=== PATIENT | female | born 1945 | race Caucasian/White ===

== ENCOUNTER 2017-01-26 18:14 | Inpatient (IN) | payer MEDICARE ==
[~2017-01-26] VITALS: Ht 167.6 cm; Wt 77.1 kg
[~2017-01-26 18:14] MED LIST: FERR325C PO; GLPZ5T PO; INSU100I18 SUBQ; MESA500C PO; VANC1VIA13 PO
[2017-01-26 18:18] VITALS: BP 116/67; PULSE 105; RESP 14; O2SAT 97
--- NOTE | 2017-01-26 19:07 | ED.REPORT ---
HPI-General Illness Date of Service Jan 26, 2017 ED Provider: Doc,Ed MD The patient is a 71 year old female with a hx of DM who presents to the ED complaining increasing generalized weakness for the past month.Associated symptoms include fatigue and difficulty walking secondary to weakness. The patient also complains of chest pain with deep inhalation. She reports having a cough for two weeks previously but it has since resolved. Patient denies fever, chills, dysuria, abdominal pain or shortness of breath. She was seen on 01/21/17 where she was started on a 10 day treatment of Augmentin. She says that she stopped taking the Augmentin before finishing the prescription because her symptoms were not improving after a few days. Nursing Notes Stated Complaint: WEAKNESS Chief Complaint: General Complaint Nursing Notes Reviewed: Yes Allergies: Coded Allergies: aspirin (Verified Adverse Reaction, Intermediate, stomach problems, ) Scheduled Ferrous Sulfate (Iron) 325 Mg Capsule.er 325 MG PO DAILY Glipizide (Glipizide) 5 Mg Tablet 5 MG PO BID Insulin Lispro (HumaLOG U100 Insulin Pen) 100 Unit/1 Ml Insuln.pen 2-3 UNIT SUBQ BID Blood Sugar Lispro Correction <151 0 units 151-175 1 unit 176-200 2 units 201-225 3 units 226-250 4 units 251-275 5 units 276-300 6 units 301-325 7 units 326-350 8 units 351-375 9 units 376-400 10 units >400 12 units Check blood sugars before meals and at bedtime. Use correction factor only before meals. Vancomycin (Vancomycin) 100 Mg/Ml Solution 125 MG PO DAILY Scheduled PRN Mesalamine (Pentasa) 500 Mg Capsule 1,000 MG PO QID PRN PRN For Diarrhea or Loose Stool General Time Seen by MD: 19:06 Chief Complaint Weakness Hx Obtained From: Patient Onset Occurred: More than a week ago... (1 month) Symptom Duration: Since onset Recent Healthcare: No recent hospitalization, Recent doctor visit Similar Sx Previous: Yes Past Medical History Past Medical History Anemia History of ulcerative proctitis Also of colitis Hyperlipidemia Acute diabetes Irritable bowel syndrome Past Surgical History Hysterectomy Smoking History Never Smoker Social History Alcohol Use: Denies alcohol use Drug Use: Denies drug use Other Social History: Good social support Ambulatory Status Independent Review of Systems Full Review of Systems Constitutional: Reports: Fatigue, Denies: Chills, Fever Respiratory: Denies: Shortness of breath Cardiovascular: Reports: Chest pain (with deep inhalation) GI: Denies: Abdominal pain Female: Denies: Dysuria Neurologic: Reports: Problem walking, Weakness (generalized) Physical Exam Vital Signs Vital Signs Date Time Temp Pulse Resp B/P Pulse Ox O2 Delivery O2 Flow Rate FiO2 01/26/17 18:18 36.8 105 14 116/67 97 Room Air Initial VS: Reviewed General/Constitutional: Well-developed, Well-nourished Neck: Full range of motion Abdomen / GI: Soft, Non-tender Skin: Warm, Dry, No cyanosis Neurologic: Alert, Oriented Psychiatric: Mood/affect normal Head / Eyes: Atraumatic, Normocephalic, PERRL, EOMI ENT: Atraumatic, Airway patent, Mucous membranes moist Respiratory / Chest: Atraumatic, Breath sounds NL, Breath sounds = bilat, No respiratory distress Heart Sounds / Murmur: Positive: Murmur present... (III/) Lymphatic: No cervical adenopathy Lower Extremity / Pelvis / MS: Atraumatic, No edema Interpretation & Diagnostics Lab Results Interpretation Result Diagram: 01/26/17194101/26/171941 Test 01/26/17 19:42 01/26/17 21:45 White Blood Count 10.5th/mm3 (3.8-10.1) Red Blood Count 4.12mil/mm3 (3.90-5.20) Hemoglobin 11.4g/dL (12.0-15.6) Hematocrit 34.0% (35.0-46.0) Mean Corpuscular Volume 82.5fL (81-100) Mean Corpuscular Hemoglobin 27.7pg (27.0-35.0) Mean Corpuscular Hemoglobin Concent 33.5% (32.0-37.0) Red Cell Distribution Width 14.2% (12.3-15.4) Platelet Count 391bil/L (150-400) Neutrophils (%) (Auto) 71.6% (40-74) Lymphocytes (%) (Auto) 14.7% (14-46) Monocytes (%) (Auto) 10.0% (4-12) Eosinophils (%) (Auto) 2.9% (0-5) Basophils (%) (Auto) 0.3% (0-3) Prothrombin Time 10.0sec (8.1-12.5) Prothromb Time International Ratio 0.94ratio Sodium Level 128mEq/L (134-144) Potassium Level 3.9mEq/L (3.5-5.2) Chloride Level 91mEq/L (97-108) Carbon Dioxide Level 21mmol/L (18-29) Blood Urea Nitrogen 17mg/dL (8-27) Creatinine 0.96mg/dL (0.57-1.00) Estimat Glomerular Filtration Rate 83mL/min (>59) Glucose Level 365mg/dL (60-99) Lactic Acid Level 1.3mmol/L (0.4-2.0) Calcium Level 9.9mg/dL (8.5-10.1) Magnesium Level 2.1mg/dL (1.6-2.6) Total Bilirubin 0.3mg/dL (0.0-1.2) Aspartate Amino Transf (AST/SGOT) 6U/L (0-50) Alanine Aminotransferase (ALT/SGPT) 8U/L (0-32) Alkaline Phosphatase 103U/L (25-165) Troponin T < 0.010ug/L (0.0-0.011) Total Protein 9.2g/dL (6.4-8.4) Albumin 3.6g/dL (3.4-5.0) Procalcitonin 0.14ng/mL (0.00-0.08) Hold [place] Top Tube Received (Received) Hold [place] Top Tube Received (Received) X-Ray Chest Interpretation Chest Xray Interpretation: IMPRESSION: Right hemidiaphragm eventration with bibasilar atelectasis. Cannot rule out superimposed right basilar pneumonia. Recommend clinical correlation. Dictated by: Jese Tineo M.D. on 01/26/2017 at 20:21 Approved by: Jese Tineo M.D. on 01/26/2017 at 20:24 Interpretation / Wet Read by: Interpret - Radiologist Re-Eval/Medical Decision Time of Eval: 22:44 Re-Evaluation/Progress Note: Patient rechecked. Discussed plan to admit. Patient understands and agrees with plan. All questions addressed at this time. Consultation : Referral / Consult Name: Marian Coe DO Consulted With: Hospitalist Call Returned at: 22:38 Supervisor Specialty Plant: Will see patient, Agrees with eval, Agrees with plan, Accepts admit Note: Discussed patient's case. Accepts admit. Counseled Regarding: Diagnosis, Lab results, Need for admission Discharge & Departure Primary Impression: Pneumonia Pneumonia type: due to unspecified organism Laterality: unspecified laterality Lung location: unspecified part of lung Qualified Code: J18.9 - Pneumonia, unspecified organism Additional Impressions: Weakness Hyponatremia Hyperglycemia Tachycardia Disposition: ADMITTED TO HOSPITAL Discharge Condition All VS Reviewed: Yes Condition: Stable Referrals: Severo Webster MD (PCP) Scribe Attestation Portions of this note were transcribed by Sandie Ambrocio and Jean Maier. I, Dr. Hsieh personally performed the history, physical exam and medical decision -making; I reviewed and confirmed the accuracy of the information in the transcribed note. Signed by: Terri Zamora, 01/26/2017 copies to: Severo Webster MD, Gary R DO Jan 26, 2017 19:07 Jan 26, 2017 19:28 Juliette Ambrocio Jan 26, 2017 20:53
[2017-01-26 19:47] LABS: BASOPHILS % (AUTO) 0.3 % (0-3); EOSINOPHILS % (AUTO) 2.9 % (0-5); Mean Corpuscular Hemoglobin 27.7 pg (27.0-35.0); Mean Corpuscular Volume 82.5 fL (81-100); NEUTROPHILS % (AUTO) 71.6 % (40-74); Platelet Count 391 bil/L (150-400)
[2017-01-26 20:05] LABS: INR 0.94 ratio
[2017-01-26] MEDS ORDERED: Insulin LISPRO 300 Unit/3 mL Inj SUBQ ONE (20:25)
--- NOTE | 2017-01-26 20:26 | DRSVH ---
PROCEDURE: X-RAY CHEST, TWO VIEWS ([id number]) INDICATIONS: pain when breathing in feels sob TECHNIQUE: 2 views of the chest were acquired. COMPARISON: [facility], CR, CHEST 1VW (PORTABLE), 10/24/2014, 6:34. [facility], CR, XR CHEST 1VW (PORTABLE), 04/15/2015, 22:15. [facility], CR, XR CHEST 2VW, 2014, 8:14. FINDINGS: Surgical changes and devices: None. Lungs and pleura: There is right diaphragmatic eventration. Bibasilar atelectasis. No pleural effusi ons or pneumothorax. A density in the right upper lobe medially is probably caused by the first right costochondral calcification. Mediastinum: Mediastinal contours are normal. Heart size is normal. Bones and chest wall: No suspicious bony abnormalities. Soft tissues appear unremarkable. IMPRESSION: Right hemidiaphragm eventration with bibasilar atelectasis. Cannot rule out superimposed right basilar pneumonia. Recommend clinical correlation. Dictated by: Jese Tineo M.D. on 01/26/2017 at 20:21 Approved by: Jese Tineo M.D. on 01/26/2017 at 20:24
[2017-01-26 20:28] LABS: Magnesium 2.1 mg/dL (1.6-2.6)
[2017-01-26 20:29] LABS: TROPONIN T < 0.010 ug/L (0.0-0.011)
[2017-01-26] MEDS ORDERED: 0.9% Sodium Chloride 1,000 ML IV ONE (21:07)
[2017-01-26] MEDS ORDERED: cefTRIAXone Inj 1,000 MG in Dextrose 5% Minibag Plus 50 ML IV ONE (21:10)
[2017-01-26 22:43] VITALS: BP 122/78; PULSE 99; RESP 18; O2SAT 97
--- NOTE | 2017-01-26 23:25 | PCM.HPMED ---
Subjective Date of Service Jan 26, 2017 Primary Provider: Admitting Physician: Marian Coe DO Primary Care Physician: Severo Webster MD Attending Physician: Marian Coe DO Chief Complaint: Weakness and shortness of breath History of Present Illness: Janee Maurice is a 71-year-old female with past medical history significant for diabetes mellitus type II, osteoporosis, and iron deficiency anemia who is directed to the ED by urgent care for progressive weakness, fatigue, loss of appetite, and shortness of breath over the last month. Past states that initial it felt like a common cold with a scratchy throat and runny nose and friends had similar symptoms. Symptoms slowly progressed and she present to the urgent care on 01/21/2017 and was diagnosed with acute sinusitis and given Augmentin. Patient took for 4 but felt this was not improving her symptoms and discontinued. Her symptoms continued to progressively worsen and she is weak and having difficulty walking and doing her own ADLs. Weakness is associated with myalgias, labored breathing, nasal congestion, headache, and decreased oral intake. She denies nausea, vomiting, dysuria, or diarrhea. On presentation to the ED patient's vitals were temperature 36.8, pulse 105, respiratory 14 satting 97% on room air, and blood pressure 116/67. Initial labs revealed a white blood cell count 10.5 with normal differential, sodium of 128, glucose of 365, and a procalcitonin 0.14. Chest x-ray showed a possible right basilar pneumonia. Patient was started on ceftriaxone and azithromycin in the ED and given 1 L normal saline. Review of Systems: Comprehensive review of systems was conducted with the patient and found to be negative except as noted above in HPI. Allergies Coded Allergies: aspirin (Verified Adverse Reaction, Intermediate, stomach problems, ) Home Medications Amitriptyline 5 mg daily Ferrous gluconate 225 mg daily Glipizide 5 mg daily Humalog Risedronate 150 mg monthly PMH Ulcerative colitis - not under treatment - not diagnosed with colonoscopy per patient Diabetes mellitus type II Iron deficiency anemia Osteoporosis Family History Mother - heart disease and diabetes mellitus type II Father - - work accident Sister - parkinson, heart disease Social History Hx Alcohol Use: Yes (Very little) Hx Substance Use: No Hx Tobacco Use: No Smoking Status: Never Smoker Living Arrangement: with Friends/Roommate Exam Vital Signs Vital Sign - Last Date Time Temp Pulse Resp B/P Pulse Ox O2 Delivery O2 Flow Rate FiO2 01/26/17 22:43 99 18 122/78 97 Room Air 01/26/17 18:18 36.8 Exam General: No acute distress, lethargic HEENT: Normocephalic, atraumatic. External ears without defect. Pupils equal, round, and reactive to light and accommodation. Anicteric sclerae, moist conjunctivae, and no lid lag. Dry oral mucosa. Neck: Supple with full range of motion. No jugular venous distension. Cardiovascular: Regular rate and rhythm with 3/6 systolic murmur. Pulmonary: Decreased breath sounds bilaterally. Normal respiratory effort with no use of accessory muscles. Abdomen: Bowel tones present. Soft, nontender, nondistended. Extremities: No clubbing, cyanosis, edema, or lymphadenopathy appreciated. Skin: Cold, decreased turgor; no rash, ulcers, or subcutaneous nodules appreciated. Neurological: Cranial nerves grossly intact. Normal muscle strength, tone, and bulk when tested directly. Difficulty when asked to sit up in bed. Psychiatric: Normal mood and affect. Alert and oriented to person, place, and time. Lab and Diagnostics Labs Procalcitonin 0.14 Result Diagram: 01/26/17194101/26/171941 Microbiology Blood, sputum, and urine culture pending. X-Rays, CTs and MRIs X-RAY CHEST, TWO VIEWS IMPRESSION: Right hemidiaphragm eventration with bibasilar atelectasis. Cannot rule out superimposed right basilar pneumonia. Recommend clinical correlation. Dictated by: Jese Tineo M.D. on 01/26/2017 at 20:21 Approved by: Jese Tineo M.D. on 01/26/2017 at 20:24 Cardiac Echo Impressions Echocardiogram Report Study Date: 01/21/2016 : 1945 Age: 70 yrs BP: 126/85 mmHg Reason For Study: Murmur Interpretation Summary There is normal left ventricular wall thickness. The ejection fraction is estimated to be 65-70%. There is mild aortic valve sclerosis. Compared to the prior echo report on 2014, there is no significant change. Reading Physician:11:52 AM Assessment & Plan Janee Maurice is a 71-year-old female with past medical issues significant for diabetes mellitus type II and hyperlipidemia who is directed to the ED by urgent care for progressive weakness, fatigue, loss of appetite, and shortness of breath. community acquired pneumonia, present on admission, active. - Chest x-ray revealed possible right basilar pneumonia. Possible viral URI - Ceftriaxone and azithromycin given in the ED and continued - Leukocytosis of 10.5 with a normal differential and procalcitonin of 0.14. - Blood and sputum cultures obtained and results pending. - Respiratory PCR panel, strep pneumonia, and legionella ordered and pending. - Supplemental oxygen as needed. - Duonebs as needed for shortness of breath. - Repeat CBC and procalcitonin in the morning. Chronic stable conditions Diabetes mellitus type II - Hemoglobin A1c pending. - Held glipizide. - Humalog low dose correctional scale with 5 units with breakfast and dinner. Ulcerative colitis - Unclear how diagnosis was made. Not currently being treated. Iron deficiency anemia - Home regimen: ferrous gluconate 225 mg daily. Insomnia - Continue home regimen: Amitriptyline 50 mg HS. Mild aortic valve sclerosis - Asymptomatic. PRN Medications - Acetaminophen as needed for mild pain/fever/headache - Bowel regimen as needed - Antiemetic as needed Patient is admitted under observation status with expected length of stay less than 2 midnights due to severity of presenting symptoms, risk of adverse event, and complexity of treatment plan. Pain Evaluation: Adequate Pain Control GI Prophylaxis: Not indicated VTE Prophylaxis: Sub-Q Heparin (Unfractionated) Resuscitation Status: DNR/DNI:Do Not Resuscitate/Intubate Attending Statement The patient was seen and examined together with house staff on 01/27/2017 and I agree with the history, exam and plan as outlined in the note above. STEVEN LAMAS DO Jan 26, 2017 23:25 Marian Coe DO Jan 27, 2017 04:49
[2017-01-26] MEDS ORDERED: MULT-528 PO (23:32)
[2017-01-26] MEDS ORDERED: AMT25T PO (23:32)
[2017-01-26 23:34] VITALS: BP 114/69; PULSE 99; RESP 16; O2SAT 96
[2017-01-26] MEDS ORDERED: FERR-83 PO (23:34)
[2017-01-27] MEDS ORDERED: Polyethylene Glycol (PEG) 17 Gm Powder PO PRN (00:15)
[2017-01-27] MEDS ORDERED: Alum-Mag Hydrox-Simeth 30 mL Suspension PO PRN (00:15)
[2017-01-27] MEDS ORDERED: Glucose 40% Oral Gel 15 Gm Tube PO PRN (00:20)
[2017-01-27] MEDS: 0.9% Sodium Chloride 1,000 ML IV SCH ×2 (00:27→11:00)
[2017-01-27] MEDS: Heparin 5,000 Unit/mL Inj SUBQ SCH ×3 (00:27→17:36)
[2017-01-27] MEDS ORDERED: Dextrose 10% 250 ML IV PRN (00:35)
[2017-01-27 00:57] VITALS: BP 120/82; PULSE 92; RESP 16; O2SAT 97
[2017-01-27] MEDS: Insulin LISPRO 300 Unit/3 mL Inj SUBQ SCH ×5 (01:59→21:15)
--- NOTE | 2017-01-27 02:23 | NUR ---
Admit Pt arrived on the floor. Noted generalized weakness upon ambulation. IVF NS running 100ml/hr. Insulin administered per sliding scale. Reports of chest pain, only on deep inspiration. Auscultation noted squeaks and mild decrease in air movement on right lower lobe. Intentional hourly rounding on going.
[2017-01-27 04:37] VITALS: BP 104/62; PULSE 90; RESP 16; O2SAT 96
[2017-01-27 05:34] LABS: APPEARANCE,URINE CLEAR (CLEAR,HAZY); COLOR,URINE YELLOW (YELLOW); OCCULT BLOOD,URINE NEGATIVE (NEGATIVE); PH,URINE 6.5 (5.0-8.0); UROBILINOGEN,URINE NORMAL (NORMAL)
[2017-01-27 06:16] LABS: BASOPHILS % (AUTO) 0.5 % (0-3); EOSINOPHILS % (AUTO) 5.1 % (0-5); MONOCYTES % (AUTO) 11.1 % (4-12); Mean Corpuscular Hemoglobin 28.2 pg (27.0-35.0); Mean Corpuscular Volume 82.7 fL (81-100); NEUTROPHILS % (AUTO) 59.4 % (40-74); Platelet Count 417 bil/L (150-400)
[2017-01-27 13:03] VITALS: BP 119/63; PULSE 98; RESP 18; O2SAT 98
--- NOTE | 2017-01-27 14:21 | PCM.PNMED ---
Subjective Date of Service Jan 27, 2017 Subjective Feeling a little better but is noting frequent BM's with liquid brown stool Exam Vital Signs Vital Sign - Last Date Time Temp Pulse Resp B/P Pulse Ox O2 Delivery O2 Flow Rate FiO2 01/27/17 13:03 36.7 98 18 119/63 98 Room Air Intake and Output 01/26/17 01/26/17 01/27/17 Cumulative From/Thru 15:00 23:00 07:00 01/26/17 18:18 - 01/27/17 06:00 Intake Total 889 ml 889 ml Output Total 850 ml 850 ml Balance 39 ml 39 ml Intake Oral 0 ml 0 ml IV Total 889 ml 889 ml Output Urine Total 850 ml 850 ml # Bowel Movements 1 1 Exam General: Alert and oriented, no acute distress Heart: Regular Lungs: Some inspiratory crackles at the bases, more prominent on the left Abdomen: Soft, non-tender Extremities: No pedal edema IVs and Medications Medications Reviewed: Medications were reviewed in detail Lab and Diagnostics Result Diagram: 01/27/17 0530 01/27/17 0530 Microbiology Blood, sputum, and urine culture pending. X-Rays, CTs and MRIs X-RAY CHEST, TWO VIEWS IMPRESSION: Right hemidiaphragm eventration with bibasilar atelectasis. Cannot rule out superimposed right basilar pneumonia. Recommend clinical correlation. Dictated by: Jese Tineo M.D. on 01/26/2017 at 20:21 Approved by: Jese Tineo M.D. on 01/26/2017 at 20:24 Cardiac Echo Impressions Echocardiogram Report Study Date: 01/21/2016 : 1945 Age: 70 yrs BP: 126/85 mmHg Reason For Study: Murmur Interpretation Summary There is normal left ventricular wall thickness. The ejection fraction is estimated to be 65-70%. There is mild aortic valve sclerosis. Compared to the prior echo report on 2014, there is no significant change. Reading Physician:11:52 AM Assessment & Plan Janee Maurice is a 71-year-old female with past medical issues significant for diabetes mellitus type II and hyperlipidemia who is directed to the ED by urgent care for progressive weakness, fatigue, loss of appetite, and shortness of breath. community acquired pneumonia, present on admission, active. - Chest x-ray revealed possible right basilar pneumonia. Possible viral URI - Ceftriaxone and azithromycin given in the ED and continued - Leukocytosis of 10.5 with a normal differential and procalcitonin of 0.14. - Blood and sputum cultures obtained and results pending. - Respiratory PCR panel, strep pneumonia, and legionella negative - Supplemental oxygen as needed. - Duonebs as needed for shortness of breath. Acute diarrhea, POA - recent Augmentin, will check stool for C dif Hyponatremia, POA, now resolved - improved from 128 to 135 - DC NS IVF Diabetes mellitus type II - Hemoglobin A1c pending. - glipizide held - Humalog 5 units with breakfast and dinner. - Humalog low dose correctional scale with glucoses improved from 365 on admit to 188-238, will increase doses Chronic stable conditions Ulcerative colitis - Unclear how diagnosis was made. Not currently being treated. Iron deficiency anemia - Home regimen: ferrous gluconate 225 mg daily. Insomnia - Continue home regimen: Amitriptyline 50 mg HS. Mild aortic valve sclerosis - Asymptomatic. PRN Medications - Acetaminophen as needed for mild pain/fever/headache - Bowel regimen as needed - Antiemetic as needed Patient is admitted under observation status with expected length of stay less than 2 midnights due to severity of presenting symptoms, risk of adverse event, and complexity of treatment plan. GI Prophylaxis: Not indicated VTE Prophylaxis: Sub-Q Heparin (Unfractionated) Resuscitation Status: DNR/DNI:Do Not Resuscitate/Intubate Laura Roberts MD Jan 27, 2017 14:21
--- NOTE | 2017-01-27 15:06 | NUR ---
Social Work-initial assessment/ multidisciplinary rounds: Data:EMR reviewed. Pt is a 71 y/o female who was admitted on 01/26/17 for pneumonia per H&P. Pt's insurance is [employer] and PCP Is Severo Webster MD. EMR Reviewed. SW met with pt and son [place] at bedside, SW role explained. Pt is alert and oriented x3. Pt resides at home with a roommate in a single level home where she remains independent with basic ADLS. Pt uses a fww and does not drive. Pt has no HH or SNF history. Pt has no group home care insurance or VA benefits. SW discussed DPOA/advanced directive, pt has not completed this, information provided. Pt states that her family will provide transport home at discharge. No concerns noted around pt's capacity for self care from RN or MD. SW provided pt with discharge planning checklist and encouraged pt to call with any questions,phone number provided on white board in room. Pt has been up independent in her room. No anticipated discharge needs. SW will continue to follow if needs arise. Assessment:pt who is independent at baseline. Plan:Pt to discharge home when medically stable via POV. No anticipated discharge needs. SW will continue to follow if needs arise. DARLENE Landeros Addendum: 01/27/17 at 1511 by TEJAL SPEARS SS Amended: Links added. Addendum: 01/27/17 at 1623 by TEJAL TOVAR Son spoke with pt's son in the [facility] and they are requesting a jr care application which has been provided. DARLENE Landeros
[2017-01-27 19:45] VITALS: BP 122/70; PULSE 91; RESP 18; O2SAT 97
[2017-01-27] MEDS ORDERED: cefTRIAXone Inj 2,000 MG in Dextrose 5% Minibag Plus 50 ML IV SCH (21:00)
[2017-01-27] MEDS ORDERED: Azithromycin Inj 500 MG in Dextrose 5% w/Vial Mate 250 ML IV SCH (22:00)
[2017-01-28] MEDS: Heparin 5,000 Unit/mL Inj SUBQ SCH ×3 (00:09→17:15)
[2017-01-28 00:13] VITALS: BP 112/72; PULSE 97; RESP 18; O2SAT 97
--- NOTE | 2017-01-28 04:02 | NUR ---
NOC Activity Pt still reports of feeling weak and some mild pain all over the body. Denies chest pain, sob, n/v or abd discomfort. Pt's VSS and has been afebrile overnight. HS meds and IV ABx administered as scheduled. Intentional hourly rounding on going.
[2017-01-28 04:38] VITALS: BP 114/71; PULSE 97; RESP 18; O2SAT 97
[2017-01-28] MEDS: Insulin LISPRO 300 Unit/3 mL Inj SUBQ SCH ×4 (07:54→21:47)
--- NOTE | 2017-01-28 11:59 | NUR ---
Social Work- readiness for discharge: Data:EMR reviewed. Pt is on day 2 of hospitalization for pneumonia per H&P. Pt is likely medically stable later today or tomorrow. Pt has been up independent in her room. No concerns around pt's capacity for self care at this time. No discharge needs identified. SW will continue to follow if needs arise. Assessment:pt who is independent at baseline. Plan:Pt to discharge home when medically stable via POV. No discharge needs identified. SW will continue to follow if needs arise. DARLENE Landeros
[2017-01-28 13:20] VITALS: BP 138/78; PULSE 103; RESP 18; O2SAT 97
--- NOTE | 2017-01-28 15:21 | NUR ---
Stool stool samples x2 collected prior to this shift, 1 sample sent this AM but was sent down unlabelled. Pt notified of needing to collect another sample. Pt became emotional and cried, stating she wanted answers and "why do they keep loosing the stool" A lot of reassuring provided.
--- NOTE | 2017-01-28 16:25 | PCM.PNMED ---
Subjective Date of Service Jan 28, 2017 Subjective Continues with "diarrhea", sudden urge for BM and then liquid brown stool. Maybe just 3 times a day. Had a lot of problem with this in the past (says once in the hospital for 3 weeks due to it) and won't go home until this is addressed. Exam Vital Signs Vital Sign - Last Date Time Temp Pulse Resp B/P Pulse Ox O2 Delivery O2 Flow Rate FiO2 01/28/17 13:20 36.6 103 18 138/78 97 Room Air Intake and Output 01/27/17 01/27/17 01/28/17 Cumulative From/Thru 15:00 23:00 07:00 01/26/17 18:18 - 01/28/17 06:50 Intake Total 1200 ml 870 ml 3959 ml Output Total 100 ml 1050 ml 2000 ml Balance 1100 ml -180 ml 1959 ml Intake Oral 1200 ml 320 ml 1520 ml IV Total 550 ml 2439 ml Output Urine Total 100 ml 1050 ml 2000 ml # Voids 1 1 # Bowel Movements 1 0 2 Exam General: Alert and oriented, no acute distress Heart: Regular Lungs: Clear Abdomen: Soft, non-tender Extremities: No pedal edema IVs and Medications Medications Reviewed: Medications were reviewed in detail Lab and Diagnostics Result Diagram: 01/27/17 0530 01/27/17 0530 Microbiology Blood, sputum, and urine culture pending. X-Rays, CTs and MRIs X-RAY CHEST, TWO VIEWS IMPRESSION: Right hemidiaphragm eventration with bibasilar atelectasis. Cannot rule out superimposed right basilar pneumonia. Recommend clinical correlation. Dictated by: Jese Tineo M.D. on 01/26/2017 at 20:21 Approved by: Jese Tineo M.D. on 01/26/2017 at 20:24 Cardiac Echo Impressions Echocardiogram Report Study Date: 01/21/2016 : 1945 Age: 70 yrs BP: 126/85 mmHg Reason For Study: Murmur Interpretation Summary There is normal left ventricular wall thickness. The ejection fraction is estimated to be 65-70%. There is mild aortic valve sclerosis. Compared to the prior echo report on 2014, there is no significant change. Reading Physician:11:52 AM Assessment & Plan Janee Maurice is a 71-year-old female with past medical issues significant for diabetes mellitus type II and hyperlipidemia who is directed to the ED by urgent care for progressive weakness, fatigue, loss of appetite, and shortness of breath. community acquired pneumonia, present on admission, active. - Chest x-ray revealed possible right basilar pneumonia. Possible viral URI - Ceftriaxone and azithromycin given in the ED and continued - review of chart shows sig problems in the past with recurrent/persistent C dif infections so will DC Ceftriaxone - change azithromycin to po for 3 more doses - Leukocytosis of 10.5 with a normal differential and procalcitonin of 0.14. - Blood cultures NGSF, sputum results pending. - Respiratory PCR panel, strep pneumonia, and legionella negative - Supplemental oxygen initially but now 97% on RA - Duonebs as needed for shortness of breath. Acute diarrhea, POA - recent Augmentin for sinusitis, stool for C dif ordered but first specimen not acceptable (wrong container?) and then second specimen unlabelled so couldn' t be used. Waiting for next BM - as above review of chart shows sig problems in the past with recurrent/ persistent C dif infections so will DC Ceftriaxone - colonoscopy done 10/[address] Hernandez showed Moderately severe ulcerative colitis involving the rectosigmoid and distal descending colon and biopsies consistent with ulcerative colitis - if stool for C dif finally obtained and is negative discuss/consult GI about diarrhea - if stool positive for C dif discuss with Dr Ferguson as he treated her recurrent/persistent C dif infections in the past Hyponatremia, POA, now resolved - improved from 128 to 135 - DC NS IVF Diabetes mellitus type II - Hemoglobin A1c 8.1 - glipizide held - Humalog 5 units with breakfast and dinner. - Humalog low dose correctional scale with glucoses improved from 365 on admit to 188-238 Jan 27, so increased doses - glucoses still low 200's so will add some bedtime Lantus at 10 units Chronic stable conditions Ulcerative colitis - Unclear how diagnosis was made. Not currently being treated. Iron deficiency anemia - Home regimen: ferrous gluconate 225 mg daily. Insomnia - Continue home regimen: Amitriptyline 50 mg HS. Mild aortic valve sclerosis - Asymptomatic. PRN Medications - Acetaminophen as needed for mild pain/fever/headache - Bowel regimen as needed - Antiemetic as needed Patient is admitted under observation status with expected length of stay less than 2 midnights due to severity of presenting symptoms, risk of adverse event, and complexity of treatment plan. GI Prophylaxis: Not indicated VTE Prophylaxis: Sub-Q Heparin (Unfractionated) VTE Mechanical Devices: Venous Foot Pump Resuscitation Status: DNR/DNI:Do Not Resuscitate/Intubate Laura Roberts MD Jan 28, 2017 16:25
[2017-01-28 19:32] VITALS: BP 146/74; PULSE 86; RESP 18; O2SAT 96
[2017-01-28] MEDS: Insulin GLARgine 100 Unit/mL Syringe SUBQ SCH (21:46)
--- NOTE | 2017-01-28 22:00 | NUR ---
Pain/stiffness Pt c/o stiffness that Tylenol not helping karishma RAND gave 1x order Oxycodone
[2017-01-29] MEDS: Heparin 5,000 Unit/mL Inj SUBQ SCH ×3 (01:00→17:46)
[2017-01-29 05:26] VITALS: BP 116/73; PULSE 74; RESP 18; O2SAT 97
[2017-01-29] MEDS: Insulin LISPRO 300 Unit/3 mL Inj SUBQ SCH ×4 (07:56→21:52)
[2017-01-29] MEDS: oxyCODONE-Acetamin 5-325 mg Tablet PO PRN (09:17)
[2017-01-29] MEDS: Vancomycin 125 mg Oral Capsule PO SCH ×3 (11:47→19:45)
[2017-01-29 12:37] VITALS: BP 112/73; PULSE 91; RESP 19; O2SAT 94
--- NOTE | 2017-01-29 13:30 | PCM.PNMED ---
Subjective Date of Service Jan 29, 2017 Subjective pt still has diarrhea, mainly brown but saw some blood, denied n/v, has diffuse pain but not severe, still very weak, denied sob, cough, sore throat, Exam Vital Signs Vital Sign - Last Date Time Temp Pulse Resp B/P Pulse Ox O2 Delivery O2 Flow Rate FiO2 01/29/17 05:26 36.2 74 18 116/73 97 Room Air Intake and Output 01/28/17 01/28/17 01/29/17 Cumulative From/Thru 15:00 23:00 07:00 01/26/17 18:18 - 01/29/17 05:29 Intake Total 1344 ml 400 ml 5703 ml Output Total 500 ml 700 ml 3200 ml Balance 844 ml -300 ml 2503 ml Intake Oral 1344 ml 400 ml 3264 ml IV Total 2439 ml Output Urine Total 500 ml 700 ml 3200 ml # Voids 3 4 # Bowel Movements 3 3 8 Exam NAD, comfortably laying down on the bed no JVD, MMM, no LAD RRR, nl s1, s2 no mrg CTAB, no w,c S,ND, diffuse td, BS+ warm, no edema, pulses 2/2 IVs and Medications Medications Reviewed: Medications were reviewed in detail Lab and Diagnostics Result Diagram: 01/27/1752901/27/17529 Microbiology Blood, sputum, and urine culture pending. X-Rays, CTs and MRIs X-RAY CHEST, TWO VIEWS IMPRESSION: Right hemidiaphragm eventration with bibasilar atelectasis. Cannot rule out superimposed right basilar pneumonia. Recommend clinical correlation. Dictated by: Jese Tineo M.D. on 01/26/2017 at 20:21 Approved by: Jese Tineo M.D. on 01/26/2017 at 20:24 Cardiac Echo Impressions Echocardiogram Report Study Date: 01/21/2016 : 1945 Age: 70 yrs BP: 126/85 mmHg Reason For Study: Murmur Interpretation Summary There is normal left ventricular wall thickness. The ejection fraction is estimated to be 65-70%. There is mild aortic valve sclerosis. Compared to the prior echo report on 2014, there is no significant change. Reading Physician:11:52 AM Assessment & Plan Janee Maurice is a 71-year-old female with past medical issues significant for diabetes mellitus type II and hyperlipidemia who is directed to the ED by urgent care for progressive weakness, fatigue, loss of appetite, and shortness of breath. acute, active, waterry diarrhea, POA, hx of recurrent c.diff infection in the past, given abx exposure from admission, possible c.diff or possible UC flare. Last Colonoscopy done 10/[address] Hernandez showed Moderately severe ulcerative colitis involving the rectosigmoid and distal descending colon and biopsies consistent with ulcerative colitis -given persistent diarrhea, will empirically start vancomycin 125mg q6h today, low threshold to start Deficid given hx. -awaits stool PCR, -consider stop vanc, start steroid based on stool PCR, will consider GI consult in this case, Chronic stable, resolved Suspected CAP, POA, Chest x-ray revealed possible right basilar pneumonia. Possible viral URI, Ceftriaxone and azithromycin given in the ED and continued. However, given persistent diarrhea,low clinical suspicion for PNA, abx were stopped 01/29. Hyponatremia, POA, now resolved with IVF Ulcerative colitis, as above Iron deficiency anemia, - Home regimen: ferrous gluconate 225 mg daily. Insomnia- Continue home regimen: Amitriptyline 50 mg HS. Mild aortic valve sclerosis- Asymptomatic. Diabetes mellitus type II, Hemoglobin A1c 8.1, -[id number] close to target, glipizide held,continue [id number], Humalog low dose correctional scale dispo: celina 2-3more days until diarrhea, weakness improve. GI Prophylaxis: Not indicated VTE Prophylaxis: Sub-Q Heparin (Unfractionated) VTE Mechanical Devices: Venous Foot Pump Resuscitation Status: DNR/DNI:Do Not Resuscitate/Intubate Time spent 35min Andrae Ruggiero MD Jan 29, 2017 08:57
[2017-01-29 16:16] VITALS: BP 127/78; PULSE 98; RESP 18; O2SAT 93
--- NOTE | 2017-01-29 19:32 | NUR ---
Pain/muscle stiffness Pt c/o generalized muscle/joint pain. admin 5 percocet, pt stated that it worked but did not want anymore opiates Admin flexeril, pt stated that pain went away but not for long and did not want any more opiates.
[2017-01-29 20:05] VITALS: BP 132/71; PULSE 103; RESP 21; O2SAT 94
[2017-01-29] MEDS: Insulin GLARgine 100 Unit/mL Syringe SUBQ SCH (21:51)
[2017-01-30] MEDS: Heparin 5,000 Unit/mL Inj SUBQ SCH ×3 (01:57→16:10)
[2017-01-30] MEDS: Vancomycin 125 mg Oral Capsule PO SCH (01:59)
[2017-01-30 04:50] VITALS: BP 95/59; PULSE 81; RESP 16; O2SAT 95
--- NOTE | 2017-01-30 06:37 | NUR ---
Pain Pt c/o general pain 09/17. Tylenol 650mg given and pt appeared asleep upon reassessment. No further complaints at this time. VSS. Care continues.
[2017-01-30 06:43] LABS: BASOPHILS % (AUTO) 0.5 % (0-3); EOSINOPHILS % (AUTO) 8.7 % (0-5); MONOCYTES % (AUTO) 9.3 % (4-12); Mean Corpuscular Volume 83.7 fL (81-100); Platelet Count 442 bil/L (150-400)
[2017-01-30] MEDS: Insulin LISPRO 300 Unit/3 mL Inj SUBQ SCH ×4 (08:21→22:00)
[2017-01-30] MEDS ORDERED: predniSONE 20 mg Tablet PO SCH (08:30)
--- NOTE | 2017-01-30 09:13 | PCM.PNMED ---
Subjective Date of Service Jan 30, 2017 Subjective pt still has diarrhea three times per day, dark but no blood, c.diff was negative. steroid started, awaits viral PCR as well, Dr.Liang YUKI joiner. eating okay, denied n/v, still has mild degree generalized abd pain Exam Vital Signs Vital Sign - Last Date Time Temp Pulse Resp B/P Pulse Ox O2 Delivery O2 Flow Rate FiO2 01/30/17 04:50 36.9 81 16 95/59 95 Room Air Intake and Output 01/29/17 01/29/17 01/30/17 Cumulative From/Thru 15:00 23:00 07:00 01/26/17 18:18 - 01/30/17 07:00 Intake Total 1295 ml 520 ml 7518 ml Output Total 900 ml 150 ml 4250 ml Balance 395 ml 370 ml 3268 ml Intake Oral 1295 ml 520 ml 5079 ml IV Total 2439 ml Output Urine Total 600 ml 150 ml 3950 ml Stool Total 300 ml 300 ml # Voids 5 1 10 # Bowel Movements 4 1 13 Exam NAD, comfortably laying down on the bed no JVD, MMM, no LAD RRR, nl s1, s2 no mrg CTAB, no w,c S,ND, diffuse td, BS+ warm, no edema, pulses 2/2 IVs and Medications Medications Reviewed: Medications were reviewed in detail Lab and Diagnostics Result Diagram: 01/30/1745 01/30/1745 Microbiology Blood, sputum, and urine culture pending. X-Rays, CTs and MRIs X-RAY CHEST, TWO VIEWS IMPRESSION: Right hemidiaphragm eventration with bibasilar atelectasis. Cannot rule out superimposed right basilar pneumonia. Recommend clinical correlation. Dictated by: Jese Tineo M.D. on 01/26/2017 at 20:21 Approved by: Jese Tineo M.D. on 01/26/2017 at 20:24 Cardiac Echo Impressions Echocardiogram Report Study Date: 01/21/2016 : 1945 Age: 70 yrs BP: 126/85 mmHg Reason For Study: Murmur Interpretation Summary There is normal left ventricular wall thickness. The ejection fraction is estimated to be 65-70%. There is mild aortic valve sclerosis. Compared to the prior echo report on 2014, there is no significant change. Reading Physician:11:52 AM Assessment & Plan Janee Maurice is a 71-year-old female with past medical issues significant for diabetes mellitus type II and hyperlipidemia who is directed to the ED by urgent care for progressive weakness, fatigue, loss of appetite, and shortness of breath. 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 pt was empirically started vancomycin 01/29, stopped given negative c.diff. -awaits stool PCR for other organisms. -appreciate GI evaluation, started prednisone 40mg qd, Chronic stable, resolved Suspected CAP, POA, Chest x-ray revealed possible right basilar pneumonia. Possible viral URI, Ceftriaxone and azithromycin given in the ED and continued. However, given persistent diarrhea,low clinical suspicion for PNA, abx were stopped 01/29. Hyponatremia, POA, now resolved with IVF Ulcerative colitis, as above Iron deficiency anemia, - Home regimen: ferrous gluconate 225 mg daily. Insomnia- Continue home regimen: Amitriptyline 50 mg HS. Mild aortic valve sclerosis- Asymptomatic. Diabetes mellitus type II, Hemoglobin A1c 8.1, -[id number] close to target, glipizide held,continue [id number], Humalog low dose correctional scale dispo: celina 1-2more days until diarrhea, weakness improve. GI Prophylaxis: Not indicated VTE Prophylaxis: Sub-Q Heparin (Unfractionated) VTE Mechanical Devices: Intermittant Pneumatic CD, Venous Foot Pump Resuscitation Status: DNR/DNI:Do Not Resuscitate/Intubate Time spent 35min Andrae Rgugiero MD Jan 30, 2017 09:13
[2017-01-30 12:14] VITALS: BP 125/80; PULSE 92; RESP 18; O2SAT 97
--- NOTE | 2017-01-30 14:08 | CONS ---
[address] [address] CONSULTATION REPORT PATIENT: ALBARO GAMBINO : 1945 MR#: [id number] ADMIT: 01/26/2017 JOB ID: [id number] DATE OF SERVICE: 01/30/2017 REASON FOR CONSULTATION: Diarrhea. HISTORY OF PRESENT ILLNESS: This is a 71-year-old female with a history of ulcerative colitis, unknown when diagnosed, not currently on any medications at this point in time; diabetes type 2; osteoporosis; iron deficiency anemia, who I was asked for a consultation for diarrhea. The patient was admitted to the hospital on January 26, 2017, for shortness of breath related to pneumonia. The patient developed diarrhea during the inpatient period. The patient says she has diarrhea 3 times per day, nonbloody. If the patient eats nothing by mouth, her diarrhea continues. The patient states that she had a flexible sigmoidoscopy on October 19, 2014, which showed moderate to severe ulcerative colitis in the rectosigmoid and descending colon. At that point in time, Entocort was started. The patient states that she never had an EGD. Denies family history of colon cancer, IBD, or celiac disease. The patient denies rectal bleeding, nausea, vomiting, hematemesis, or unintentional weight loss. The patient presents for further evaluation. PAST MEDICAL HISTORY: As stated above. The patient has not been taking any medications for her ulcerative colitis. PAST SURGICAL HISTORY: None. ALLERGIES: ASPIRIN. MEDICATIONS: Amitriptyline, ferrous gluconate, glipizide, Humalog, SOCIAL HISTORY: No alcohol, no IV drug use. She denies smoking. FAMILY HISTORY: Negative for IBD, celiac disease, or colon cancer. REVIEW OF SYSTEMS: The patient denies headache, blurry vision, nausea, vomiting, chest pain. Positive for shortness of breath. Positive for abdominal pain. No skin rash or joint pain. PHYSICAL EXAMINATION: Vital signs: Upon presentation temperature is 36.9, pulse 81, blood pressure 95/59, respiratory rate 16, saturating 95% on room air. General: No acute distress. Head: No scars. Eyes: Anicteric. Throat supple. Lungs: Clear to auscultation bilaterally. Cardiovascular: Regular rhythm and rate. Abdomen: Soft. Mildly distended. Mild epigastric discomfort upon palpation. Normoactive bowel sounds. Extremities: No clubbing, cyanosis, or edema. LABORATORY: Labs show white count 11.5, hemoglobin 9.6, hematocrit 29, MCV 83, platelet count 442. Sodium 138, potassium 4.1, chloride 102, bicarb 24, BUN 0.98, glucose 173, hemoglobin A1c 8.1, lactic acid 1.3, calcium 10.2, magnesium 2.0. Total bili nl., AST 9, ALT 9, alkaline phosphatase 89. Total protein 7.2. PT 10.0, INR 0.94. C. diff in the stool was negative. IMAGING: Chest x-ray done January 26, 2017, shows right hemidiaphragm elevation with severe atelectasis. Cannot rule out superimposed right basilar pneumonia. ASSESSMENT AND PLAN: This is a 71-year-old female with history of type 2 diabetes, osteoporosis, iron deficiency anemia, history of ulcerative colitis (unknown exactly when diagnosed), status post flexible sigmoidoscopy in 2014 showing left-sided disease, not currently on medications and has not been on medications except for steroid enemas in the past, presents here for diarrhea. At this point in time I have gone over the risks and benefits and the patient wishes to have colonoscopy. I do recommend stool studies to rule out infection and a CT of the abdomen and pelvis with contrast given the fact that her abdominal exam is mildly distended. RECOMMENDATIONS: 1. Please check full stool studies. 2. CT of the abdomen and pelvis with contrast to rule out obstruction. 3. colonoscopy schedule for tomorrow sat 7am. [facility]
--- NOTE | 2017-01-30 14:28 | NUR ---
NUTRITION ASSESSMENT: ASSESS: 71YO F admit with diarrhea, C.Dff negative, GI consulted recommending colonoscopy--pt refuses, will undergo abdominal CT re possible obstruction with abdominal distention. Spoke with pt today re trying banatrol for diarrhea control once diet advances s/p CT. Pt agreeable. PMHX: Ulcerative colitis,osteoporosis,anemia,DM II DIET: Clear Liquids. Previous diabetic with 100% po LABS: Alb 3.0, A1c 8.1, Glu 173 MEDS: Reviewed GI: 1 BM 01/30 WEIGHT:78.6kg, Admit :77.2kg BMI: 27.0 EST.NEEDS: 5924-1047 kcal (25-30kcal/kg); 75-90g pro (1.0-1.2g/kg pro) NUTRITION DIAGNOSIS: (1) Altered GI tract function related to unknown etiology as evidenced by persistent diarrhea. INTERVENTION: (1) As diet advances will add Banatrol to glucerna supplement BID to help control diarrhea. MONITOR/EVALUATE: GI status, po intake, diet advancement, lab values. F/U per moderate risk.
[2017-01-30] MEDS ORDERED: PEG/Electrolytes 4,000 mL Solution PO ONE (16:00)
[2017-01-30] MEDS: oxyCODONE-Acetamin 5-325 mg Tablet PO PRN (16:03)
[2017-01-30 16:29] VITALS: BP 132/74; PULSE 83; RESP 19; O2SAT 93
--- NOTE | 2017-01-30 18:04 | NUR ---
Diarrhea: Patient started on Bowel prep for EGD tomorrow? Nursing machinist supervisor was notified (due to tomorrow being Thursday). Patients Colyte was started at 1530 (patient stated that she was unable to drink the liquid without Crystal lite flavoring) Crystal lite lemon flavor was added to patients colyte. Patient will bee NPO except for the Colyte. Addendum: 01/30/17 at 1834 by REYNALDO CARO RN Stella is having Colonoscopy tomorrow first thing in the morning at 0700 per Nursing machinist supervisor report. Stella continues to drink her bowel prep and she has been informed of the plan.
[2017-01-30 20:34] VITALS: BP 125/80; PULSE 93; RESP 20; O2SAT 95
[2017-01-30] MEDS: Insulin GLARgine 100 Unit/mL Syringe SUBQ SCH (20:36)
[2017-01-31] MEDS: Heparin 5,000 Unit/mL Inj SUBQ SCH ×3 (00:30→17:02)
[2017-01-31 04:23] VITALS: BP 129/75; PULSE 89; RESP 18; O2SAT 97
--- NOTE | 2017-01-31 05:58 | NUR ---
bowel prep: pt instructed to consume as much of the bowel prep, as possible. endo informed this RN that they would be here to get her at 0530, pt refused said she would go at 0700 as originally planned. Nursing supervisor research shop notified. GI RN, and doctor to pt's room at 0530, not enough prep has been consumed to proceed with procedure. pt to finish prep, then clear liquid diet. pt tearful and frustrated through the night, asking for a "pill", instead of the bowel prep. will continue to monitor pt.
--- NOTE | 2017-01-31 05:59 | PCM.PNSURG ---
Subjective Date of Service: Jan 31, 2017 Date of Service: Jan 31, 2017 Visit Information: Subjective: pt did not finish golteyl. appears to drink only 1/2. stool still brown. Case cancelled. Postop General: No Complaints Objective Vital Sign- Last 8 Hours Date Time Temp Pulse Resp B/P Pulse Ox O2 Delivery O2 Flow Rate FiO2 01/31/17 04:23 36.4 89 18 129/75 97 Room Air Intake and Output- Last 8 Hour 01/31/17 Cumulative From/Thru 07:00 01/26/17 18:18 - 01/30/17 21:03 Intake Total 8154 ml Output Total 4750 ml Balance 3404 ml Intake Oral 5715 ml IV Total 2439 ml Output Urine Total 3950 ml Stool Total 300 ml Urine/Stool Mix 500 ml # Voids 13 # Bowel Movements 16 General: Oriented X3 Neck: Supple Lungs: Clear to Auscultation Heart: Exam Unremarkable Abdomen: Benign, Soft, Non-tender, Non-distended, Normoactive bowel tones Extremities: Distal Pulses Palpable Result Diagram: 01/30/17 0545 01/30/17 0545 Assessment & Plan Impression This is a 71-year-old female with history of type 2 diabetes, osteoporosis, iron deficiency anemia, history of ulcerative colitis (unknown exactly when diagnosed), status post flexible sigmoidoscopy in 2014 showing left -sided disease, not currently on medications and has not been on medications except for steroid enemas in the past, presents here for diarrhea. At this point in time I have gone over the risks and benefits and the patient wishes to have colonoscopy. I do recommend stool studies to rule out infection and a CT of the abdomen and pelvis with contrast given the fact that her abdominal exam is mildly distended. RECOMMENDATIONS: 1. f/u stool studies. 2. await CT of the abdomen and pelvis with contrast to rule out obstruction. 3. clear liquid diet today 4. Colonoscopy most likely now Friday 02/02. Please reprep thursday 5pm with golteyl. will cont to follow. Problems: VTE Prophylaxis: Sub-Q Heparin (Unfractionated) Resuscitation Status: DNR/DNI:Do Not Resuscitate/Intubate Mendoza Vidal MD Jan 31, 2017 05:59
[2017-01-31] MEDS ORDERED: fentaNYL-PF 50 mCg/mL 2 mL Inj IVPUSH PRN (06:00)
--- NOTE | 2017-01-31 08:11 | NUR ---
Pt concerns Pt tearful this AM, verbalizing increasing frustration re: bowel prep/colonoscopy cancellation. Attempted to educate pt on importance of completing entirety of bowel prep and the need for clear bowels. Pt states, "I can't drink this stuff! I've been having diarrhea since I got here so that's good enough for the colonoscopy." Pt req to finish sipping on prep and "schedule the test for the morning." Again, discussed rationale behind orders/prep - pt unwilling to compromise stating, "I will NOT drink that again." Pt aware she can schedule colonoscopy outpt if that is her preference. Discussed with pt 's new orders: bowel prep starting tomorrow at 4pm to be finished by 8pm and a colonoscopy Thursday. Pt states, "I can't do it, I won't do it." Allowed pt to vent frustrations, provided comfort as able. MD aware.
[2017-01-31] MEDS: Insulin LISPRO 300 Unit/3 mL Inj SUBQ SCH ×4 (08:15→22:00)
--- NOTE | 2017-01-31 10:57 | NUR ---
Off unit Pt off unit to CT. Addendum: 01/31/17 at 1142 by CARLITOS FARRAR RN Pt back on unit at 1130.
--- NOTE | 2017-01-31 11:30 | DRSVH ---
PROCEDURE: CT ABDOMEN AND PELVIS WITH CONTRAST ([id number]) INDICATIONS: persistent diarrhea rule out obstruction TECHNIQUE: After the administration of intravenous contrast, 5 mm thick sections acquired from the diaphragm to the symphysis. 5 mm coronal and sagittal reformats were acquired. For radiation dose reduction, the following was used: automated exposure control, adjustment of mA and/or kV according to patient naseem daly. COMPARISON: [facility], CT, CHEST/ABD/PELVIS W/CON (PN), 10/13/2014, 18:09. FINDINGS: Image quality: Excellent. ABDOMEN: Lung bases: Lung bases are clear. Heart size is normal. Solid organs: Liver and spleen are normal in size and enhancement. Mild hepatic steatosis. Gallblad minnie is unremarkable. Biliary system is non dilated. Pancreas enhances normally. No adrenal nodules . Kidneys demonstrate normal size and enhancement, without hydronephrosis. Bilateral renal cysts are unchanged. Peritoneum and bowel: Bowel loops demonstrate demonstrate mild fluid-filled appearance in a nonobstr uctive pattern. Sigmoid colon is collapsed, limiting evaluation. No free fluid or air. Multiple clip s are present in the right lower quadrant. Nodes and vessels: No retroperitoneal or mesenteric adenopathy by size criteria. Subcentimeter scat tered lymph nodes are present within the mesenteric fat of the abdomen the largest measuring approxim ately 5 mm. Aorta and inferior vena cava are normal in size. Miscellaneous: No ventral hernias. PELVIS: Genitourinary: Bladder wall thickness is normal. Miscellaneous: No inguinal hernias or adenopathy. Bones: No suspicious bony lesions. No vertebral body compression fractures. IMPRESSION: 1. Nonspecific appearance of mild fluid-filled bowel loops in a nonobstructive pattern. This could be related to given history of diarrhea. 2. Hepatic steatosis. Dictated by: Evelin Morrison M.D. on 01/31/2017 at 11:24 Approved by: Evelin Morrison M.D. on 01/31/2017 at 11:28
[2017-01-31 13:12] VITALS: BP 116/67; PULSE 95; RESP 21; O2SAT 95
--- NOTE | 2017-01-31 14:33 | PCM.PNMED ---
Subjective Date of Service Jan 31, 2017 Subjective pt was very upset and emotional, stated that she was not informed about proper timing of bowel prep denied abd pain, n/v, agreed to proceed colonoscopy on Thursday. Exam Vital Signs Vital Sign - Last Date Time Temp Pulse Resp B/P Pulse Ox O2 Delivery O2 Flow Rate FiO2 01/31/17 13:12 37.0 95 21 116/67 95 Room Air Intake and Output 01/30/17 01/30/17 01/31/17 Cumulative From/Thru 15:00 23:00 07:00 01/26/17 18:18 - 01/31/17 06:27 Intake Total 636 ml 2000 ml 92050 ml Output Total 500 ml 5 ml 4755 ml Balance 136 ml 1995 ml 5399 ml Intake Oral 636 ml 2000 ml 7715 ml IV Total 2439 ml Output Urine Total 5 ml 3955 ml Stool Total 300 ml Urine/Stool Mix 500 ml 500 ml # Voids 3 13 # Bowel Movements 3 5 21 Exam NAD, comfortably laying down on the bed no JVD, MMM, no LAD RRR, nl s1, s2 no mrg CTAB, no w,c S,ND, diffuse td, BS+ warm, no edema, pulses 2/2 IVs and Medications Medications Reviewed: Medications were reviewed in detail Lab and Diagnostics Result Diagram: 01/30/1754401/30/17544 Microbiology Blood, sputum, and urine culture pending. X-Rays, CTs and MRIs X-RAY CHEST, TWO VIEWS IMPRESSION: Right hemidiaphragm eventration with bibasilar atelectasis. Cannot rule out superimposed right basilar pneumonia. Recommend clinical correlation. Dictated by: Jese Tineo M.D. on 01/26/2017 at 20:21 Approved by: Jese Tineo M.D. on 01/26/2017 at 20:24 Cardiac Echo Impressions Echocardiogram Report Study Date: 01/21/2016 : 1945 Age: 70 yrs BP: 126/85 mmHg Reason For Study: Murmur Interpretation Summary There is normal left ventricular wall thickness. The ejection fraction is estimated to be 65-70%. There is mild aortic valve sclerosis. Compared to the prior echo report on 2014, there is no significant change. Reading Physician:11:52 AM Assessment & Plan Janee Maurice is a 71-year-old female with past medical issues significant for diabetes mellitus type II and hyperlipidemia who is directed to the ED by urgent care for progressive weakness, fatigue, loss of appetite, and shortness of breath. 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 pt was empirically started vancomycin 01/29, stopped given negative c.diff. -awaits stool PCR for other organisms. -appreciate GI evaluation, briefly given steroid, however, held given on confirmed diagnosis. -colonoscopy 01/31 canceled due to poor bowel prep, reschedule it on 02/02, start bowel prep 4-8pm on 02/01 Chronic stable, resolved Suspected CAP, POA, Chest x-ray revealed possible right basilar pneumonia. Possible viral URI, Ceftriaxone and azithromycin given in the ED and continued. However, given persistent diarrhea,low clinical suspicion for PNA, abx were stopped 01/29. Hyponatremia, POA, now resolved with IVF Ulcerative colitis, as above Iron deficiency anemia, - Home regimen: ferrous gluconate 225 mg daily. Insomnia- Continue home regimen: Amitriptyline 50 mg HS. Mild aortic valve sclerosis- Asymptomatic. Diabetes mellitus type II, Hemoglobin A1c 8.1, -[id number] close to target, glipizide held,continue [id number], Humalog low dose correctional scale dispo: celina 02/02-, home, GI Prophylaxis: Not indicated VTE Prophylaxis: Sub-Q Heparin (Unfractionated) VTE Mechanical Devices: Venous Foot Pump Resuscitation Status: DNR/DNI:Do Not Resuscitate/Intubate Time spent 35min Andrae Ruggiero MD Jan 31, 2017 14:33
--- NOTE | 2017-01-31 17:42 | NUR ---
Social Work: [facility] SW visited patient's room to obtain signature of [facility]. PAOLO has been signed by patient. DARLENE He
--- NOTE | 2017-01-31 18:39 | NUR ---
Behavior Pt tearful throughout this shift with multiple complaints against staff, MD, etc. Pt with some forgetfulness noted as well (c/o to dtr that this RN refused to give her a popcicle or tea when she hadn't asked, claiming she hadn't met any MD's when the doctor had been in prior, etc). Dtr reported that she was noticing forgetfulness and was needing to remind pt of things over and over. This RN attempted to reorient pt and provided education as able. Bed in lowest, locked position and call light in reach.
[2017-01-31 20:14] VITALS: BP 138/83; PULSE 81; RESP 18; O2SAT 97
[2017-01-31] MEDS: Insulin GLARgine 100 Unit/mL Syringe SUBQ SCH (20:19)
[2017-02-01] MEDS: Heparin 5,000 Unit/mL Inj SUBQ SCH ×3 (02:43→17:45)
[2017-02-01 05:45] VITALS: BP 124/79; PULSE 83; RESP 18; O2SAT 95
[2017-02-01] MEDS: Insulin LISPRO 300 Unit/3 mL Inj SUBQ SCH ×4 (08:00→22:00)
--- NOTE | 2017-02-01 08:45 | PCM.PNMED ---
Subjective Date of Service Feb 01, 2017 Subjective pt is feeling well, denied n/v, mild abd pain, had watery stools this AM sample send for stool PCR generally feels better today, wiling to try bowel prep starting at 4pm Exam Vital Signs Vital Sign - Last Date Time Temp Pulse Resp B/P Pulse Ox O2 Delivery O2 Flow Rate FiO2 02/01/17 05:45 36.6 83 18 124/79 95 Room Air Intake and Output 01/31/17 01/31/17 02/01/17 Cumulative From/Thru 15:00 23:00 07:00 01/26/17 18:18 - 02/01/17 06:22 Intake Total 472 ml 08741 ml Output Total 1200 ml 5955 ml Balance -728 ml 4671 ml Intake Oral 472 ml 8187 ml IV Total 2439 ml Output Urine Total 1200 ml 5155 ml Stool Total 300 ml Urine/Stool Mix 500 ml # Voids 13 # Bowel Movements 1 22 Exam NAD, comfortably laying down on the bed no JVD, MMM, no LAD RRR, nl s1, s2 no mrg CTAB, no w,c S,ND,NT BS+ warm, no edema, pulses 2/ IVs and Medications Medications Reviewed: Medications were reviewed in detail Lab and Diagnostics Result Diagram: 01/30/1754401/30/17544 Microbiology Blood, sputum, and urine culture pending. X-Rays, CTs and MRIs X-RAY CHEST, TWO VIEWS IMPRESSION: Right hemidiaphragm eventration with bibasilar atelectasis. Cannot rule out superimposed right basilar pneumonia. Recommend clinical correlation. Dictated by: Jese Tineo M.D. on 01/26/2017 at 20:21 Approved by: Jese Tineo M.D. on 01/26/2017 at 20:24 Cardiac Echo Impressions Echocardiogram Report Study Date: 01/21/2016 : 1945 Age: 70 yrs BP: 126/85 mmHg Reason For Study: Murmur Interpretation Summary There is normal left ventricular wall thickness. The ejection fraction is estimated to be 65-70%. There is mild aortic valve sclerosis. Compared to the prior echo report on 2014, there is no significant change. Reading Physician:11:52 AM Assessment & Plan Janee Maurice is a 71-year-old female with past medical issues significant for diabetes mellitus type II and hyperlipidemia who is directed to the ED by urgent care for progressive weakness, fatigue, loss of appetite, and shortness of breath. 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 pt was empirically started vancomycin 01/29, stopped given negative c.diff. -awaits stool PCR for other organisms. -appreciate GI evaluation, briefly given steroid, however, held given on confirmed diagnosis. -colonoscopy 01/31 canceled due to poor bowel prep, reschedule it on 02/02, start bowel prep 4-8pm on 02/01 Chronic stable, resolved Suspected CAP, POA, Chest x-ray revealed possible right basilar pneumonia. Possible viral URI, Ceftriaxone and azithromycin given in the ED and continued. However, given persistent diarrhea,low clinical suspicion for PNA, abx were stopped 01/29. Hyponatremia, POA, now resolved with IVF Ulcerative colitis, as above Iron deficiency anemia, - Home regimen: ferrous gluconate 225 mg daily. Insomnia- Continue home regimen: Amitriptyline 50 mg HS. Mild aortic valve sclerosis- Asymptomatic. Diabetes mellitus type II, Hemoglobin A1c 8.1, -[id number] close to target, glipizide held,continue [id number], Humalog low dose correctional scale dispo: celina 02/02-, home, GI Prophylaxis: Not indicated VTE Prophylaxis: Sub-Q Heparin (Unfractionated) VTE Mechanical Devices: Venous Foot Pump Resuscitation Status: DNR/DNI:Do Not Resuscitate/Intubate Time spent 35min Andrae Ruggiero MD Feb 01, 2017 08:45
--- NOTE | 2017-02-01 12:18 | NUR ---
Social Work- Readiness for Discharge/Multidisciplinary Rounds Data: EMR reviewed. Pt is on day 6 of hospitalization. Pt discussed in multidisciplinary rounds, pt to receive colonoscopy tomorrow, bowel prep this evening. Per care trends, pt has been ambulating in the room with her walker 3x or more daily during this admission. No discharge needs anticipated or discussed in rounds. Pt to d/c home with family to transport via POV. SW will continue to follow for needs at d/c. Assessment: Pt who is independent at baseline with ADLs and self-care Plan: Pt likely to d/c home in 1-2 days, family to transport via POV. No discharge needs anticipated or discussed in rounds. SW will continue to follow for needs at d/c. DARLENE Hart
--- NOTE | 2017-02-01 13:17 | PCM.PNMED ---
Subjective Date of Service Feb 01, 2017 Subjective one small volume episode of diarrhea today no other complaints Exam Vital Signs Vital Sign - Last Date Time Temp Pulse Resp B/P Pulse Ox O2 Delivery O2 Flow Rate FiO2 02/01/17 05:45 36.6 83 18 124/79 95 Room Air Intake and Output 01/31/17 01/31/17 02/01/17 Cumulative From/Thru 15:00 23:00 07:00 01/26/17 18:18 - 02/01/17 06:22 Intake Total 472 ml 23248 ml Output Total 1200 ml 5955 ml Balance -728 ml 4671 ml Intake Oral 472 ml 8187 ml IV Total 2439 ml Output Urine Total 1200 ml 5155 ml Stool Total 300 ml Urine/Stool Mix 500 ml # Voids 13 # Bowel Movements 1 22 Exam Gen- no apparent distress Lab and Diagnostics Result Diagram: 01/30/17 0545 01/30/17 0545 Microbiology Blood, sputum, and urine culture pending. X-Rays, CTs and MRIs X-RAY CHEST, TWO VIEWS IMPRESSION: Right hemidiaphragm eventration with bibasilar atelectasis. Cannot rule out superimposed right basilar pneumonia. Recommend clinical correlation. Dictated by: Jese Tineo M.D. on 01/26/2017 at 20:21 Approved by: Jese Tineo M.D. on 01/26/2017 at 20:24 Cardiac Echo Impressions Echocardiogram Report Study Date: 01/21/2016 : 1945 Age: 70 yrs BP: 126/85 mmHg Reason For Study: Murmur Interpretation Summary There is normal left ventricular wall thickness. The ejection fraction is estimated to be 65-70%. There is mild aortic valve sclerosis. Compared to the prior echo report on 2014, there is no significant change. Reading Physician:11:52 AM Assessment & Plan Acute on Chronic Diarrhea -stool studies and CT of abdomen unremarkable -colonoscopy with biopsies tomorrow -suspect this is likely on going colitis from her known history of UC History of Left sided UC -biopsy proven UC, patient taken her self off Delzicol which I had prescribed 2 years ago. Following her last visit with me she saw Dr Yecenia Wayne at [facility] and endoscopy with biopsies which revealed active colitis. GI Prophylaxis: Not indicated VTE Prophylaxis: Sub-Q Heparin (Unfractionated) VTE Mechanical Devices: Venous Foot Pump Resuscitation Status: DNR/DNI:Do Not Resuscitate/Intubate Vero Hinkle MD Feb 01, 2017 13:17
[2017-02-01 13:32] VITALS: BP 120/69; PULSE 88; RESP 18; O2SAT 95
[2017-02-01] MEDS ORDERED: PEG/Electrolytes 4,000 mL Solution PO ONE (16:00)
--- NOTE | 2017-02-01 18:16 | NUR ---
BG BG reading at dinner at 51. Pt given glass of orange juice. Recheck at 82. Pt encouraged to also drink another glass of apple juice.
[2017-02-01] MEDS: Insulin GLARgine 100 Unit/mL Syringe SUBQ SCH (21:00)
[2017-02-01 21:16] VITALS: BP 145/75; PULSE 95; RESP 18; O2SAT 98
[2017-02-02] MEDS: Heparin 5,000 Unit/mL Inj SUBQ SCH ×3 (00:37→16:30)
--- NOTE | 2017-02-02 04:25 | NUR ---
NOC/[place] prep Pt finished the remainder of her golytely. Pt is a little anxious about the upcoming procedure. Re-assure pt and all questions answered. No complains overnight. Blood sugar has been 125 at the start of shift and 136 around 0300. Call light within reach. Intentional hourly rounding on going.
[2017-02-02 04:41] VITALS: BP 104/57; PULSE 80; RESP 20; O2SAT 96
[2017-02-02 06:40] LABS: Mean Corpuscular Hemoglobin 27.3 pg (27.0-35.0); Platelet Count 482 bil/L (150-400)
[2017-02-02 07:04] LABS: Magnesium 2.1 mg/dL (1.6-2.6)
[2017-02-02 07:37] LABS: BASOPHILS % (AUTO) 1 % (0-3); EOSINOPHILS % (AUTO) 7 % (0-5); MONOCYTES % (AUTO) 8 % (4-12); NEUTROPHILS % (AUTO) 47 % (40-74)
[2017-02-02] MEDS: Insulin LISPRO 300 Unit/3 mL Inj SUBQ SCH ×3 (07:54→16:51)
--- NOTE | 2017-02-02 13:12 | PCM.PNMED ---
Subjective Date of Service Feb 02, 2017 Subjective awaits colonoscopy today, scheduled at 4pm denied abd pain, Exam Vital Signs Vital Sign - Last Date Time Temp Pulse Resp B/P Pulse Ox O2 Delivery O2 Flow Rate FiO2 02/02/17 04:41 36.8 80 20 104/57 96 Room Air Intake and Output 02/01/17 02/01/17 02/02/17 Cumulative From/Thru 15:00 23:00 07:00 01/26/17 18:18 - 02/02/17 06:33 Intake Total 840 ml 966 ml 37970 ml Output Total 5955 ml Balance 840 ml 966 ml 6477 ml Intake Oral 840 ml 946 ml 9973 ml IV Total 20 ml 2459 ml Output Urine Total 5155 ml Stool Total 300 ml Urine/Stool Mix 500 ml # Voids 4 3 20 # Bowel Movements 4 26 Exam NAD, comfortably laying down on the bed no JVD, MMM, no LAD RRR, nl s1, s2 no mrg CTAB, no w,c S,ND,NT BS+ warm, no edema, pulses 2/ IVs and Medications Medications Reviewed: Medications were reviewed in detail Lab and Diagnostics Result Diagram: 02/02/17 0608 02/02/17 0608 Microbiology Blood, sputum, and urine culture pending. X-Rays, CTs and MRIs X-RAY CHEST, TWO VIEWS IMPRESSION: Right hemidiaphragm eventration with bibasilar atelectasis. Cannot rule out superimposed right basilar pneumonia. Recommend clinical correlation. Dictated by: Jese Tineo M.D. on 01/26/2017 at 20:21 Approved by: Jese Tineo M.D. on 01/26/2017 at 20:24 Cardiac Echo Impressions Echocardiogram Report Study Date: 01/21/2016 : 1945 Age: 70 yrs BP: 126/85 mmHg Reason For Study: Murmur Interpretation Summary There is normal left ventricular wall thickness. The ejection fraction is estimated to be 65-70%. There is mild aortic valve sclerosis. Compared to the prior echo report on 2014, there is no significant change. Reading Physician:11:52 AM Assessment & Plan Janee Maurice is a 71-year-old female with past medical issues significant for diabetes mellitus type II and hyperlipidemia who is directed to the ED by urgent care for progressive weakness, fatigue, loss of appetite, and shortness of breath. 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 pt was empirically started vancomycin 01/29, stopped given negative c.diff, stool PCR also negative. -pt remained clinically stable -appreciate GI service , tentatively scheduled for colonscopy today. Chronic stable, resolved Suspected CAP, POA, Chest x-ray revealed possible right basilar pneumonia. Possible viral URI, Ceftriaxone and azithromycin given in the ED and continued. However, given persistent diarrhea,low clinical suspicion for PNA, abx were stopped 01/29. Hyponatremia, POA, now resolved with IVF Ulcerative colitis, as above Iron deficiency anemia, - Home regimen: ferrous gluconate 225 mg daily. Insomnia- Continue home regimen: Amitriptyline 50 mg HS. Mild aortic valve sclerosis- Asymptomatic. Diabetes mellitus type II, Hemoglobin A1c 8.1, -[id number] close to target, glipizide held,continue [id number], Humalog low dose correctional scale dispo: likely tomorrow home GI Prophylaxis: Not indicated VTE Prophylaxis: Sub-Q Heparin (Unfractionated) VTE Mechanical Devices: Venous Foot Pump Resuscitation Status: DNR/DNI:Do Not Resuscitate/Intubate Time spent 35min Andrae Ruggiero MD Feb 02, 2017 13:12
[2017-02-02 15:06] VITALS: BP 127/80; PULSE 105; RESP 20; O2SAT 100
--- NOTE | 2017-02-02 15:20 | NUR ---
Off unit Pt off unit via wc by ENDO staff for Colonoscopy. Pt denied pain. IV SL.
[2017-02-02] MEDS ORDERED: fentaNYL-PF 50 mCg/mL 2 mL Inj ONE (15:23)
[2017-02-02] MEDS ORDERED: fentaNYL-PF 50 mCg/mL 2 mL Inj IVPUSH PRN (15:25)
[2017-02-02] MEDS ORDERED: 0.9% Sodium Chloride 1,000 ML IV ONE (15:42)
[2017-02-02 15:57] VITALS: BP 89/69; PULSE 91; RESP 14; O2SAT 97
[2017-02-02 16:26] VITALS: BP 118/67; PULSE 89; RESP 14; O2SAT 96
[2017-02-02 16:28] VITALS: BP 118/72; PULSE 91; RESP 14; O2SAT 96
--- NOTE | 2017-02-02 17:17 | PCM.DIMED ---
Discharge Instructions Date of Service Feb 02, 2017 Dates of Hospitalization Jan 26, 2017 at 22:06 Discharge Diagnosis Discharge Diagnosis acute dx, Watery diarrhea, likely microscopic colitis vs irritable bowel syndrome Hyponatremia,resolved with IVF probable pneumonia Chronic dx hx of recurrent c.diff hx of UC Iron deficiency anemia,y. Insomnia- Mild aortic valve sclerosis Diabetes mellitus type II, Medication Instructions Additional med instructions You can take Imodium as needed for diarrhea Diet Discharge Diet: No restrictions Activity Discharge Activity: No restrictions Call your provider Call your provider for: Excessive diarrhea Patient Instructions Patient Instructions You were hospitalized with watery diarrhea, you underwent through work-ups including stool studies, colonoscopy which didn't show any findings suggestive of infection or inflammation. Please follow up with your doctor in one week, Please follow up with in GI clinic in 2-4weeks, follow up the result of biopsy Follow-up Provider: Mendoza Vidal MD Follow-up with PCP in: 2 weeks Andrae Ruggiero MD Feb 02, 2017 16:27
--- NOTE | 2017-02-02 17:22 | NUR ---
Social Work-discharge: Data:EMR Reviewed. Pt is on day 7 of hospitalization for pneumonia per H&P. Pt is medically stable for discharge. Pt has been up independent in her room. SW spoke with pt no concerns noted. No anticipated discharge needs. All updated and agreeable to plan. Assessment:Pt who is independent at baseline. Plan:Pt to discharge home today via POV. No anticipated discharge needs. All updated and agreeable to plan. DARLENE Landeros
--- NOTE | 2017-02-02 17:27 | NUR ---
Discharge Pt d/cd home with friend at 1527. Pt returned from [facility] [address] at 1640 and heard of discharge pending. Pt stated to be upset with length of stay and recollection of several lost stool samples. Pt refused to have her BG checked, refused to drink any liquids after the scope and to be discharged out via wc. Last VSS. IV d/cd. All personal belongings left with pt.
--- NOTE | 2017-02-03 01:53 | ENDO ---
[address] [address] ENDOSCOPY PROCEDURE PATIENT: ALBARO GAMBINO : 1945 MR#: [id number] ADMIT: 01/26/2017 JOB ID: [id number] DATE OF PROCEDURE: PROCEDURE: Colonoscopy with biopsy. PREOPERATIVE DIAGNOSIS(ES): Diarrhea. POSTOPERATIVE DIAGNOSIS(ES): Normal colonoscopy. ANESTHESIA: Fentanyl 75 mcg and Versed 3 mg IV administered. COMPLICATIONS: None. BLOOD LOSS: Minimal. DESCRIPTION OF PROCEDURE: After risks and benefits explained to patient, informed consent was obtained. After anesthesia was administered, colonoscope was inserted from the rectum to the terminal ileum. Mucosa carefully examined. Prep of the patient was fair. After the procedure was done, the scope was withdrawn and the procedure terminated. FINDINGS: Upon inspection of the anus, no masses, hemorrhoids, ulcers, or fissures that were seen throughout the entire examination. There were no polyps, masses, or lesions. Biopsies taken of random colon and terminal ileum to rule out microscopic colitis, IBD. Retroflexion was normal. IMPRESSIONS: Normal colonoscopy, status post biopsy. RECOMMENDATIONS: Await pathology results. Okay to discharge home from GI standpoint today. Start clear liquid diet. Advance as tolerated.
--- NOTE | 2017-02-03 10:36 | PCM.DC.MED ---
Discharge Summary Date of Service Feb 02, 2017 Dates of Hospitalization Date of Hospital Admission Jan 26, 2017 at 22:06 Date of Discharge: Feb 02, 2017 Providers: Admitting Physician: Marian Coe DO Primary Care Physician: Severo Webster MD Attending Physician: Andrae Ruggiero MD Diagnosis at Time of Discharge Diagnosis at Time of Discharge acute dx, Watery diarrhea, likely microscopic colitis vs irritable bowel syndrome Hyponatremia,resolved with IVF probable pneumonia Chronic dx hx of recurrent c.diff hx of UC Iron deficiency anemia,y. Insomnia- Mild aortic valve sclerosis Diabetes mellitus type II, Consultations GI Procedures XRay, CTs & MRIs X-RAY CHEST, TWO VIEWS IMPRESSION: Right hemidiaphragm eventration with bibasilar atelectasis. Cannot rule out superimposed right basilar pneumonia. Recommend clinical correlation. Dictated by: Jese Tineo M.D. on 01/26/2017 at 20:21 Approved by: Jese Tineo M.D. on 01/26/2017 at 20:24 Cardiac Echo Impression Echocardiogram Report Study Date: 01/21/2016 : 1945 Age: 70 yrs BP: 126/85 mmHg Reason For Study: Murmur Interpretation Summary There is normal left ventricular wall thickness. The ejection fraction is estimated to be 65-70%. There is mild aortic valve sclerosis. Compared to the prior echo report on 2014, there is no significant change. Reading Physician:11:52 AM Brief History HPI obtained by Dr. Coe on 01/26 Janee Maurice is a 71-year-old female with past medical history significant for diabetes mellitus type II, osteoporosis, and iron deficiency anemia who is directed to the ED by urgent care for progressive weakness, fatigue, loss of appetite, and shortness of breath over the last month. Past states that initial it felt like a common cold with a scratchy throat and runny nose and friends had similar symptoms. Symptoms slowly progressed and she present to the urgent care on 01/21/2017 and was diagnosed with acute sinusitis and given Augmentin. Patient took for 4 but felt this was not improving her symptoms and discontinued. Her symptoms continued to progressively worsen and she is weak and having difficulty walking and doing her own ADLs. Weakness is associated with myalgias, labored breathing, nasal congestion, headache, and decreased oral intake. She denies nausea, vomiting, dysuria, or diarrhea. On presentation to the ED patient's vitals were temperature 36.8, pulse 105, respiratory 14 satting 97% on room air, and blood pressure 116/67. Initial labs revealed a white blood cell count 10.5 with normal differential, sodium of 128, glucose of 365, and a procalcitonin 0.14. Chest x-ray showed a possible right basilar pneumonia. Patient was started on ceftriaxone and azithromycin in the ED and given 1 L normal saline. Hospital Course Janee Maurice is a 71-year-old female with past medical issues significant for diabetes mellitus type II and hyperlipidemia who is directed to the ED by urgent care for progressive weakness, fatigue, loss of appetite, and shortness of breath. Patient was initially treated for pneumonia with azithromycin, however, given low suspicion clinically, azithromycin was stopped. Patient was noted to have persistent watery diarrhea, most likely the cause of generalized weakness. Since patient had recurrent C. difficile infection, Vancomycin was tried for one day then stopped as Stool PCR and C. difficile also negative. Given previous history of ulcerative colitis, diarrhea was presumably due to IBD, however, colonoscopy was performed, didn't show any abnormal findings. It's possible that pt has diarrhea from IBS or microscopic colitis. No medication was recommended per GI service, pt was stable condition on d/c, will follow up with given biopsy taken from polys. 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 pt was empirically started vancomycin 01/29, stopped given negative c.diff, stool PCR also negative. -pt remained clinically stable -appreciate GI service , tentatively scheduled for colonscopy today. Chronic stable, resolved Suspected CAP, POA, Chest x-ray revealed possible right basilar pneumonia. Possible viral URI, Ceftriaxone and azithromycin given in the ED and continued. However, given persistent diarrhea,low clinical suspicion for PNA, abx were stopped 01/29. Hyponatremia, POA, now resolved with IVF Ulcerative colitis, as above Iron deficiency anemia, - Home regimen: ferrous gluconate 225 mg daily. Insomnia- Continue home regimen: Amitriptyline 50 mg HS. Mild aortic valve sclerosis- Asymptomatic. Diabetes mellitus type II, Hemoglobin A1c 8.1, -[id number] close to target, glipizide held,continue [id number], Humalog low dose correctional scale dispo: likely tomorrow home Exam Vital Signs (Last) Date Time Temp Pulse Resp B/P Pulse Ox O2 Delivery O2 Flow Rate FiO2 02/02/17 16:28 91 14 118/72 96 Room Air 02/02/17 15:06 36.7 Exam NAD, comfortably laying down on the bed no JVD, MMM, no LAD RRR, nl s1, s2 no mrg CTAB, no w,c S,ND,NT,normoactive BS+ warm, no edema, pulses 2/2 Test 01/26/17 19:42 01/26/17 21:45 01/27/17 00:20 01/27/17 05:17 Prothrombin Time 10.0sec (8.1-12.5) Prothromb Time International Ratio 0.94ratio Lactic Acid Level 1.3mmol/L (0.4-2.0) Troponin T < 0.010ug/L (0.0-0.011) Hold [place] Top Tube Received (Received) Hold [place] Top Tube Received (Received) Hemoglobin A1c 8.1% (4.8-5.6) Thyroid Stimulating Hormone (TSH) 3.130uIU/mL (0.450-4.500) Urine Legionella pneumophilia Ag Negative (Negative) Test 01/27/17 05:27 01/30/17 05:45 02/02/17 06:08 Urine Color Yellow (YELLOW) Urine Appearance Clear (CLEAR,HAZY) Urine pH 6.5 (5.0-8.0) Urine Specific [place] 1.011 (1.003-1.035) Urine Protein Tracemg/dL (NEG,TRACE) Urine Glucose (UA) 250mg/dL (NEGATIVE) Urine Ketones Negativemg/dL (NEGATIVE) Urine Occult Blood Negative (NEGATIVE) Urine Nitrite Negative (NEGATIVE) Urine Bilirubin Negative (NEGATIVE) Urine Urobilinogen Normalmg/dL (NORMAL) Urine Leukocyte Esterase Negative (NEGATIVE) Urine RBC 0-2/hpf (0-2) Urine WBC 0-5/hpf (0-5) Urine Epithelial Cells Few/hpf (NONE-MOD) Urine Crystals None seen (NONE SEEN) Urine Bacteria Few/hpf (NONE-FEW) Urine Hyaline Casts None/lpf (NONE) Urine Granular Casts None seen (NONE SEEN) Urine Waxy Casts None seen (NONE SEEN) Urine Red Blood Cell Casts None seen (NONE SEEN) Urine White Blood Cell Casts None seen (NONE SEEN) Urine Mucus None seen (None Seen) Urine Trichomonas None seen (NONE SEEN) Urine Yeast None (NONE SEEN) Urinalysis Comment None Urine Culture Reflexed Not indicated Procalcitonin 0.14ng/mL (0.00-0.08) White Blood Count 11.1th/mm3 (3.8-10.1) Red Blood Count 3.81mil/mm3 (3.90-5.20) Hemoglobin 10.4g/dL (12.0-15.6) Hematocrit 32.4% (35.0-46.0) Mean Corpuscular Volume 85.0fL (81-100) Mean Corpuscular Hemoglobin 27.3pg (27.0-35.0) Mean Corpuscular Hemoglobin Concent 32.1% (32.0-37.0) Red Cell Distribution Width 14.6% (12.3-15.4) Platelet Count 482bil/L (150-400) Neutrophils (%) (Auto) 47% (40-74) Lymphocytes (%) (Auto) 32% (14-46) Monocytes (%) (Auto) 8% (4-12) Eosinophils (%) (Auto) 7% (0-5) Basophils (%) (Auto) 1% (0-3) Band Neutrophils % 5% (1-5) Sodium Level 139mEq/L (134-144) Potassium Level 4.0mEq/L (3.5-5.2) Chloride Level 101mEq/L (97-108) Carbon Dioxide Level 29mmol/L (18-29) Blood Urea Nitrogen 8mg/dL (8-27) Creatinine 0.95mg/dL (0.57-1.00) Estimat Glomerular Filtration Rate 84mL/min (>59) Glucose Level 130mg/dL (60-99) Calcium Level 9.4mg/dL (8.5-10.1) Magnesium Level 2.1mg/dL (1.6-2.6) Total Bilirubin 0.2mg/dL (0.0-1.2) Aspartate Amino Transf (AST/SGOT) 20U/L (0-50) Alanine Aminotransferase (ALT/SGPT) 20U/L (0-32) Alkaline Phosphatase 76U/L (25-165) Total Protein 7.3g/dL (6.4-8.4) Albumin 3.3g/dL (3.4-5.0) Microbiology Results Blood, sputum, and urine culture pending. Discharge Medications Discharge Medications Amitriptyline (Amitriptyline) 25 Mg Tab 50 MG PO HS (Reported) Ferrous Sulfate (Ferrous Sulfate) 325 Mg Tablet 325 MG PO DAILYWM (Reported) Glipizide (Glipizide) 5 Mg Tablet 5 MG PO BIDWM (Reported) Insulin Lispro (HumaLOG U100 Insulin Pen) 100 Unit/1 Ml Insuln.pen 2-10 UNIT SUBQ BIDWM (Reported) Blood Sugar Lispro Correction <151 0 units 151-175 1 unit 176-200 2 units 201-225 3 units 226-250 4 units 251-275 5 units 276-300 6 units 301-325 7 units 326-350 8 units 351-375 9 units 376-400 10 units >400 12 units Check blood sugars before meals and at bedtime. Use correction factor only before meals. Multivit with Calcium,Iron,Min (Multivitamins [id number]) 1 Each Tablet 1 EACH PO QAM (Reported) Additional med instructions You can take Imodium as needed for diarrhea Followup Plan Disposition: Home Discharge Diet: No restrictions Discharge Activity: No restrictions Patient Instructions You were hospitalized with watery diarrhea, you underwent through work-ups including stool studies, colonoscopy which didn't show any findings suggestive of infection or inflammation. Please follow up with your doctor in one week, Please follow up with in GI clinic in 2-4weeks, follow up the result of biopsy Follow-up Provider: Mendoza Vidal MD Follow-up with PCP in: 2 weeks Time spent 65 minutes Andrae Ruggiero MD Feb 03, 2017 10:36
--- NOTE | 2017-02-04 15:21 | PATH ---
SURGICAL PATHOLOGY Attending Physician:Mendoza Vidal MD CASE STATUS: Signed Out PATIENT NAME: ALBARO GAMBINO PID: [id number] : 1945 DATE COLLECTED:02/02/2017 00:00 SPECIMEN: 1: Ileum, Biopsy 2: Colon, Biopsy CLINICAL HISTORY: DIARRHEA, NORMAL EXAM 1). TERMINAL ILEUM BIOPSY 2). RANDOM COLON BIOPSY FINAL DIAGNOSIS: 1.TERMINAL ILEUM, BIOPSY: PORTIONS OF SMALL BOWEL MUCOSA WITH NO DIAGNOSTIC ABNORMALITY. Negative for active inflammation, dysplasia, and malignancy. 2.RANDOM COLON, BIOPSIES:ACTIVE COLITIS, PLEASE SEE COMMENT. ICD10 R19.7 NOTE: 2. Histologic sections demonstrate superficial portions of colorectal mucosa with increased lymphocytes and plasma cells within the lamina propria. There are also increased neutrophils with patchy regions of cryptitis and crypt abscesses. Crypt architectural distortion is mild. No granulomas are identified. There is no evidence of dysplasia or malignancy. The differential diagnosis includes NSAID use, an acute self-limited bacterial colitis, and idiopathic inflammatory bowel disease, in the appropriate clinical setting. GROSS DESCRIPTION: The specimen is received in two formalin filled containers labeled with the patient's name. 1). The specimen is labeled " TI " and consists of 2 portions of tissue which aggregate to 0.2 x 0.2 x 0.2 CM. The specimen is entirely submitted in cassette 1A. 2). The specimen is labeled "random colon" and consists of 5 portions of tissue which aggregate to 0.3 x 0.3 x 0.2 CM. The specimen is entirely submitted in cassette 2A. 02/03/2017NM MICRO DESCRIPTION: See diagnosis. ICD-9 CODES: CPT CODES: 1: 08215 2: 53902 Electronically Signed Out Myah Soares MD [facility] [address], [place] [address] Technical component performed at [facility], [facility] [address], [place], [address]
== END 2017-02-02 17:46 | disposition home or self-care (01) | DRG 392 ==
LOC: SED 18:14 → OBSVTOIN 22:06 → MPC 22:06 → INTOOBSV 22:06
PROVIDERS: ADMIT Internal Medicine; ATTEND Internal Medicine
PROC: 0DBL8ZX Excision of Transverse Colon, Via Natural or Artificial Opening Endoscopic, Diagnostic (ICD-10-PCS; 2017-02-02)
PROC: 0DBM8ZX Excision of Descending Colon, Via Natural or Artificial Opening Endoscopic, Diagnostic (ICD-10-PCS; 2017-02-02)
PROC: 0DBB8ZX Excision of Ileum, Via Natural or Artificial Opening Endoscopic, Diagnostic (ICD-10-PCS; principal; 2017-02-02 17:00)
PROC: 0DBK8ZX Excision of Ascending Colon, Via Natural or Artificial Opening Endoscopic, Diagnostic (ICD-10-PCS; 2017-02-02 17:00)
DX: K58.0 Irritable bowel syndrome with diarrhea (principal); E87.1 Hypo-osmolality and hyponatremia; E78.5 Hyperlipidemia, unspecified; E11.65 Type 2 diabetes mellitus with hyperglycemia; D50.9 Iron deficiency anemia, unspecified; G47.00 Insomnia, unspecified; Z66 Do not resuscitate; Z88.6 Allergy status to analgesic agent; Z79.4 Long term (current) use of insulin